=== PATIENT | female | born 1990 | race Two or more races ===

== ENCOUNTER 2017-06-16 14:45 | Day surgery (SDC) | payer BC ==
[~2017-06-16] VITALS: Ht 167.6 cm; Wt 62.9 kg
[2017-06-16] MEDS ORDERED: BIRTH CONTROL (15:30)
--- NOTE | 2017-06-16 16:17 | OPPN ---
Date/Time of Note Date/Time of Note DATE: 06/16/17 TIME: 16:16 Operative Report Preoperative Diagnosis Rectal bleeding Postoperative Diagnosis Internal hemorrhoid Operation/Procedure Performed Colonoscopy Surgeon see signature line advertising sales assistant None Anesthesia: moderate sedation Estimated blood loss: none Transfusion Required none Specimen None Grafts/Implants none Complications none FRANK FREITAS MD Jun 16, 2017 16:17
[2017-06-16 16:30] VITALS: BP 103/67; PULSE 63; RESP 18
[2017-06-16] MEDS ORDERED: MIDAZOLAM 1 MG/ML 2 ML INJ ONE ×3 (16:37→16:38)
[2017-06-16] MEDS ORDERED: FENTAnyl 50 MCG/ML VIAL ONE (16:38)
[2017-06-16 16:40] VITALS: BP 108/70; RESP 18
--- NOTE | 2017-06-16 18:24 | GILP ---
DATE OF PROCEDURE: 06/16/2017 NAME OF PROCEDURE: Colonoscopy. SURGEON: Frank Barrera MD PREOPERATIVE DIAGNOSES: Rectal bleeding. POSTOPERATIVE DIAGNOSES: 1. Colonoscopy all the way to the cecum. 2. Internal hemorrhoids. 3. No colitis or neoplasm was identified. INDICATION FOR THE PROCEDURE: The patient is a 26-year-old female patient who was complaining of re ctal bleeding. The patient was scheduled for colonoscopy for further evaluation. The procedure and possible complications were well explained to the patient and the family and conse nt was obtained. DESCRIPTION OF PROCEDURE: Under the influence of fentanyl and Versed, the colonoscope was carefully introduced in the rectum and under direct vision, it was advanced all the way to the cecum. FINDINGS: The patient had internal hemorrhoids. No colitis or neoplasm was identified. She tolerated the procedure very well and there was no complication from the procedure. At the end of the procedures, she was awake with stable vital signs and she was discharged home to the care of her family. IMPRESSION: Please see postoperative diagnoses. PLAN: Anusol-HC 2.5% cream b.i.d. Dictated By: FRANK BAXTER/ANDRES Conf#: [id number] DID#: [id number]
== END 2017-06-16 17:44 | disposition home or self-care (01) ==
LOC: GIL 14:45
PROVIDERS: ATTEND Internal Medicine Gastroenterology
DX: K62.5 Hemorrhage of anus and rectum (principal); K64.8 Other hemorrhoids
CPT/HCPCS: 45378; 84703; J2250; J3010